=== PATIENT | female | born 1990 | race African-American/Black ===

== ENCOUNTER 2019-10-16 14:34 | Emergency (ER) | payer OTHER ==
[~2019-10-16] VITALS: Ht 160 cm; Wt 127.3 kg
[2019-10-16] MEDS ORDERED: LOSA25TA71 PO (14:43)
[2019-10-16] MEDS ORDERED: METF-960 PO (14:43)
[2019-10-16 15:00] VITALS: BP 143/94
[2019-10-16] MEDS ORDERED: LIDOCAINE 5% TRANSDERMAL PATCH TD ONE (15:15)
[2019-10-16] MEDS ORDERED: KETOROLAC TROMETHAMINE 30 MG/ML VIAL IM ONE (15:15)
== END 2019-10-16 17:30 | disposition home or self-care (01) ==
LOC: EMS 14:48
DX: S83.92XA Sprain of unspecified site of left knee, initial encounter (principal); E66.01 Morbid (severe) obesity due to excess calories; E11.9 Type 2 diabetes mellitus without complications; I10 Essential (primary) hypertension; Z68.42 Body mass index [BMI] 45.0-49.9, adult; X58.XXXA Exposure to other specified factors, initial encounter; Y93.89 Activity, other specified; Y92.89 Other specified places as the place of occurrence of the external cause; Y99.8 Other external cause status
CPT/HCPCS: 73562; 96372; 99283; J1885